=== PATIENT | female | born 1965 | race Caucasian/White ===

== ENCOUNTER → 2025-04-18 | Outpatient (CLI) | payer OTHER ==
[2025-04-18 07:57] LABS: Basophils # (auto) 0 10 ^3/uL (0-0.2); Basophils % (auto) 0.8 % (0.0-2.0); Eosinophils # (auto) 0.1 10 ^3/uL (0-0.8); Eosinophils % (auto) 1.7 % (0.0-7.0); Hemoglobin 15.6 g/dL (12.2-16.2); Lymphocytes # (auto) 1.4 10 ^3/uL (0.4-5.4); Lymphocytes % (auto) 26.8 % (10.0-50.0); Mean Corpuscular Hemoglobin 31.7 pg (28.0-32.0); Mean Corpuscular Hgb Conc. 33.9 g/dL (32.0-36.0); Mean Corpuscular Volume 93.3 fL (80.0-100.0); Monocytes # (auto) 0.5 10 ^3/uL (0-1.3); Monocytes % (auto) 10.2 % (0.0-12.0); Neutrophils # (auto) 3.2 10 ^3/uL (1.6-8.6); Neutrophils % (auto) 60.5 % (37.0-80.0); Platelet Count (auto) 293 10^3/uL (140-450); Red Blood Cells 4.93 10^6/uL (4.0-5.20); White Blood Cell 5.2 10^3/uL (4.4-10.8)
[2025-04-18 08:09] LABS: Urine Bacteria FEW /hpf (None Seen); Urine Blood 1+ /uL (Negative); Urine Clarity Turbid (Clear); Urine Color Light-Yellow (Yellow); Urine Hyaline Cast FEW /lpf (0 - 2); Urine Mucus FEW (None Seen); Urine Protein, UAD Negative (Negative); Urine Specific Gravity 1.019 (1.001-1.035); Urine Squamous Epithelial Cell MOD /hpf (<5); Urine Urobilinogen Normal (Negative); Urine WBC 11 /HPF (0-5); Urine pH 6.5 (5.0-9.0)
[2025-04-18 08:24] LABS: Alanine Aminotransferase 18 U/L (7-40); Alkaline Phosphatase 97 U/L (46-116); Anion Gap 8 (5-15); BUN/Creatinine Ratio 20.4 (10.0-20.0); Blood Urea Nitrogen 19 mg/dL (9-23); Calcium 10.2 mg/dL (8.7-10.4); Carbon Dioxide 27 mmol/L (20-31); Chloride 106 mmol/L (98-107); Glucose 92 mg/dL (74-106); Potassium 4.3 mmol/L (3.5-5.1); Sodium 141 mmol/L (136-145)
[2025-04-18 08:25] LABS: Total Protein 7.4 g/dL (5.7-8.2)
[2025-04-18 08:26] LABS: Albumin 4.7 g/dL (3.2-4.8); HDL Cholesterol 54 mg/dL (40-59)
[2025-04-18 08:27] LABS: Bilirubin, Total 0.6 mg/dL (0.2-1.0)
[2025-04-18 08:30] LABS: Aspartate Aminotransferase 10 U/L (13-40); Cholesterol 265 mg/dL (< 200); LDL Cholesterol 209 mg/dL (< 100); Triglycerides 157 mg/dL (< 150)
[2025-04-18 10:20] LABS: Hepatitis B Core Total AB Negative (Negative)
[2025-04-18 10:25] LABS: Folate (Folic Acid) 14.26 ng/mL (>5.38)
[2025-04-18 11:25] LABS: Hepatitis A Total Antibody Negative (Negative); Hepatitis B Surface Antibody Negative (Negative); Hepatitis B Surface Antigen Negative (Negative); Hepatitis C Antibody Negative (Negative)
[2025-04-19 08:07] LABS: Rheumatoid Arthritis Factor <10.0 IU/mL (<14.0)
[2025-04-19 11:07] LABS: Thyroid Peroxidase (TPO) Ab 12 IU/mL (0-34)
== END | disposition home or self-care (01) ==
LOC: LAB 07:22
PROVIDERS: ATTEND Nurse Practitioner Family
DX: E78.5 Hyperlipidemia, unspecified (principal); D64.9 Anemia, unspecified; R53.83 Other fatigue; M25.50 Pain in unspecified joint; Z12.11 Encounter for screening for malignant neoplasm of colon; Z11.3 Encounter for screening for infections with a predominantly sexual mode of transmission; Z00.01 Encounter for general adult medical examination with abnormal findings
CPT/HCPCS: 36415; 80053; 80061; 81001; 82306; 82607; 82746; 83036; 84443; 85025; 86376; 86431; 86703; 86704; 86706; 86708; 86803; 87340

== ENCOUNTER 2025-08-05 08:25 | Outpatient (CLI) | payer MEDICAID ==
[2025-08-05 08:56] LABS: Hematocrit 44.7 % (36.0-46.0); Hemoglobin 15.5 g/dL (12.2-16.2); Mean Corpuscular Hemoglobin 32.5 pg (28.0-32.0); Mean Corpuscular Volume 93.7 fL (80.0-100.0); Nucleated Red Blood Cells % 0.0 %
[2025-08-05 09:14] LABS: Alanine Aminotransferase 25 U/L (7-40); Albumin 4.4 g/dL (3.2-4.8); Alkaline Phosphatase 97 U/L (46-116); Anion Gap 7 (5-15); BUN/Creatinine Ratio 16.0 (10.0-20.0); Bilirubin, Total 0.8 mg/dL (0.2-1.0); Blood Urea Nitrogen 16 mg/dL (9-23); Calcium 9.3 mg/dL (8.7-10.4); Carbon Dioxide 29 mmol/L (20-31); Chloride 107 mmol/L (98-107); Glucose 87 mg/dL (74-106); Potassium 4.5 mmol/L (3.5-5.1); Sodium 143 mmol/L (136-145); Total Protein 7.4 g/dL (5.7-8.2); Triglycerides 86 mg/dL (< 150)
[2025-08-05 09:19] LABS: Cholesterol 268 mg/dL (< 200); HDL Cholesterol 61 mg/dL (40-59)
== END 2025-08-05 17:00 | disposition home or self-care (01) ==
LOC: LAB 08:25
PROVIDERS: ATTEND Nurse Practitioner Family
DX: E78.5 Hyperlipidemia, unspecified (principal); E55.9 Vitamin D deficiency, unspecified; R73.03 Prediabetes
CPT/HCPCS: 36415; 80053; 80061; 82306; 83036; 85025